=== PATIENT | female | born 1970 | race Two or more races ===

== ENCOUNTER → 2024-09-07 11:13 | Outpatient (REF) | payer BC, SELFPAY | LOC: MRI 3T 11:13 | PROVIDERS: ATTENDING PHYSICIAN Podiatrist Foot & Ankle Surgery; FAMILY PHYSICIAN Nurse Practitioner Family | DX: M84.376A Stress fracture, unspecified foot, initial encounter for fracture (principal) | CPT/HCPCS: 73718 ==